=== PATIENT | female | born 1965 | race Caucasian/White ===

== ENCOUNTER 2018-10-03 07:10 | Day surgery (SDC) | payer OTHER ==
[2018-10-03] MEDS ORDERED: MIDAZOLAM 1 MG/ML 2 ML INJ ×2 (09:26→11:26)
[2018-10-03] MEDS ORDERED: FENTAnyl 50 MCG/ML VIAL (09:26)
== END 2018-10-03 10:17 | disposition home or self-care (01) ==
LOC: GIL 07:10
DX: Z12.11 Encounter for screening for malignant neoplasm of colon (principal); K64.8 Other hemorrhoids; K57.30 Diverticulosis of large intestine without perforation or abscess without bleeding
CPT/HCPCS: 45378